=== PATIENT | female | born 1960 | race Caucasian/White ===

== ENCOUNTER 2017-10-19 17:23 | Emergency (ER) | payer MEDICAID, OTHER, SELFPAY ==
[~2017-10-19] VITALS: Ht 165.1 cm; Wt 59.9 kg
[~2017-10-19 17:23] MED LIST: ADVAIR; VENTOLIN
[2017-10-19 17:30] VITALS: BP 127/74
== END 2017-10-19 19:27 | disposition home or self-care (01) ==
LOC: ED 18:42
DX: M54.42 Lumbago with sciatica, left side (principal); F17.200 Nicotine dependence, unspecified, uncomplicated
CPT/HCPCS: 99283